=== PATIENT | female | born 1970 | race Caucasian/White ===

== ENCOUNTER 2022-11-09 17:21 | Emergency (ER) | payer OTHER, SELFPAY ==
[2022-11-09 17:30] VITALS: BP 135/75; PULSE 66; RESP 16; TEMP 36.8; O2SAT 96; BMI 32.5
--- NOTE | 2022-11-09 17:39 | ECG_ITS ---
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 Measurements Intervals [place] Rate: 68 P: 18 DE: 149 QRS: 98 QRSD: 101 T: 63 QT: 407 QTc: 433 Interpretive Statements SINUS RHYTHM BORDERLINE RIGHT AXIS DEVIATION [QRS AXIS > 90] INCOMPLETE RIGHT BUNDLE BRANCH BLOCK [90+ ms QRS DURATION, TERMINAL R IN V1/V2, 40+ ms S IN I/aVL/V4/V5/V6] MINIMAL ST DEPRESSION [0.025+ mV ST DEPRESSION] No previous ECG available for comparison Electronically Signed On 11-10-2022 23:24:04 SUPPORT ASSISTANT by Sandra Willard M.D. [id number]
[2022-11-09 20:34] VITALS: BP 126/74; PULSE 64; RESP 16; TEMP 36.7; O2SAT 94
--- NOTE | 2022-11-09 20:52 | USR_ITS ---
PROCEDURE INFORMATION: Exam: US Abdomen, Limited; Right Upper Quadrant Exam date and time: 11/09/2022 9:01 PM Age: 52 years old Clinical indication: Abdominal pain; Other: Ruq pain x 2 days TECHNIQUE: Imaging protocol: Real time ultrasound of the abdomen with image documentation. Limited exam focused on the right upper quadrant. COMPARISON: No relevant prior studies available. FINDINGS: Liver: Normal. No masses. Gallbladder: Normal. No gallstones. There is no gallbladder wall thickening. Biliary ducts: Normal. No stones. No dilation. Pancreas: Visualized pancreas is unremarkable. Right kidney: Normal. No mass. No hydronephrosis. US/US gall bladder [id number] IMPRESSION: No acute findings.
[2022-11-09 21:39] VITALS: BP 145/84; PULSE 67; RESP 16; TEMP 36.8; O2SAT 97
--- NOTE | 2022-11-09 21:46 | W.ED.ABDPA2 ---
HPI - Abdominal Pain General: Chief Complaint: Abdominal Pain Stated Complaint: abd pain/n/belching Time Seen by Provider: 11/09/22 21:39 History of Present Illness: Ms. Velasco is a 52-year-old lady with history of hypertension presenting to the emergency department for abdominal pain. She reports being at her baseline health and had subacute onset of pain in the right upper quadrant of her abdomen. She notes nausea but no vomiting. Denies changes in bowel habits or other signs of systemic illness. Overall course of symptoms has persisted. Intensity is moderate to severe. Denies similar frequent episodes in the past. Only abdominal surgery is . No other specific changes in health, exacerbating, or alleviating factors identified. Onset (ago): hour(s) Pain Consistency: constant Location: RLQ Severity: moderate Quality: aching and sharp Radiation: none Migration to: no migration Exacerbating factors: movement Relieving factors: nothing Associated Symptoms: Reports nausea; Denies coffee ground emesis, hematuria, hematemesis, melena and vomiting Review of Systems General: Reports: 10 or more systems reviewed and unremarkable except in HPI and below GI: Reports: nausea; Denies: vomiting, hematemesis, coffee ground emesis or melena : Denies: hematuria PFSH ED PFSH: Medical History Bilateral low back pain with bilateral sciatica Social History Smoking and tobacco status: never smoked Physical Exam Const: COMMON NORMALS: alert GENERAL APPEARANCE: cooperative and well developed HENMT: COMMON NORMALS: normocephalic and atraumatic HEAD & SCALP: normocephalic and atraumatic Eye: COMMON NORMALS: conjunctivae normal CONJUNCTIVA: Yes conjunctivae normal SCLERA: sclerae normal Neck/C-Spine: COMMON NORMALS: supple GENERAL: Yes trachea midline Resp: COMMON NORMALS: normal respiratory effort EFFORT & INSPECTION: Yes able to speak in complete sentences Cardio: COMMON NORMALS: regular rate and regular rhythm RATE: regular rate RHYTHM: regular rhythm GI: COMMON NORMALS: Soft to palpation PALPATION: Yes Soft to palpation, Yes Tenderness to palpation present (GI), No Guarding due to palpation present (GI) and No Rigid due to palpation Extremity: GENERAL: Yes normal exam except as noted and No edema Neuro: COMMON NORMALS: moves all extremities SENSORIUM/ORIENTATION: Yes alert and No Orientation impaired Psych: COMMON NORMALS: mental status grossly normal and Normal thought process present THOUGHT PROCESS: Normal thought process present Course Vital Signs: Vital signs: Vital Signs Temperature 98.3 F 11/09/22 21:39 Pulse Rate 80 11/10/22 00:17 Respiratory Rate 16 11/10/22 00:17 Blood Pressure 101/65 11/10/22 00:17 Pulse Oximetry 93 11/10/22 00:17 Oxygen Delivery Me thod 11/10/22 00:00 MDM - Abdominal Pain Medical Decision Making 52-year-old lady presenting with abdominal pain. Exam as above, abdominal tenderness in the right lower quadrant without evidence of acute surgical abdomen. Patient also notes indigestion feeling. EKG notable for sinus rhythm, borderline right axis deviation and incomplete right bundle branch block. No STEMI. Labs with no significant hematologic or metabolic abnormalities with exception of mildly elevated lipase. No UTI. Negative right upper quadrant ultrasound. CT abdomen pelvis with likely enteritis and hepatic steatosis. Patient treated with analgesia and antiemetic, also received GI cocktail. Most likely etiology of patient's symptoms is unspecified abdominal pain. The results of ED evaluation were discussed with the patient including prescriptions and/or symptomatic cares (if applicable) including appropriate and responsible use, followup plan, and return precautions. The patient verbalized understanding and felt safe for discharge. Medical Records I reviewed the patient's medical records. Lab Data I reviewed the patient's lab results. 11/09/22 21:56 11/09/22 21:56 Labs/Radiology: Radiology Impressions Gallbladder Ultrasound 11/09/22 20:52 IMPRESSION: No acute findings. Abdomen/Pelvis CT 11/09/22 22:15 IMPRESSION: 1. Prominent fluid in the small bowel without dilation may reflect an enteritis. 2. Emphysematous changes. 3. Hepatic steatosis. 4. Right hepatic lobe cyst. 5. Constipation. Laboratory Results WBC 7.3 10^3/uL (4.0-10.0) 11/09/22 21:56 RBC 5.07 10^6/uL (4.1-5.3) 11/09/22 21:56 Hgb 14.9 g/dL (11.5-15.3) 11/09/22 21:56 Hct 46.6 % (37.0-47.0) 11/09/22 21:56 MCV 91.9 fl (81-99) 11/09/22 21:56 MCH 29.4 pg (28.0-34.0) 11/09/22 21:56 MCHC 32.0 g/dL (30.0-36.0) 11/09/22 21:56 RDW 13.2 % (12.1-15.1) 11/09/22 21:56 Plt Count 227 10^3/cmm (130-400) 11/09/22 21:56 MPV 11.0 fL (7.4-10.4) H 11/09/22 21:56 Neut % (Auto) 56.0 % 11/09/22 21:56 Lymph % (Auto) 32.9 % 11/09/22 21:56 [place] % (Auto) 7.3 % 11/09/22 21:56 Eos % (Auto) 2.6 % 11/09/22 21:56 Baso % (Auto) 0.6 % 11/09/22 21:56 Neut # (Auto) 4.08 10^3/uL (1.8-7.7) 11/09/22 21:56 Lymph # (Auto) 2.4 10^3/uL (0.8-4.8) 11/09/22 21:56 [place] # (Auto) 0.5 10^3/uL (0.2-0.9) 11/09/22 21:56 Eos # (Auto) 0.2 10^3/uL (0.0-0.8) 11/09/22 21:56 Baso # (Auto) 0.0 10^3/uL (0.0-0.1) 11/09/22 21:56 Nucleated RBC % (auto) 0 % 11/09/22 21:56 Nucleated RBCs # 0.0 /100WBC 11/09/22 21:56 Sodium 138 mmol/L (136-145) 11/09/22 21:56 Potassium 4.1 mmol/L (3.5-5.1) 11/09/22 21:56 Chloride 98 mmol/L (98-107) 11/09/22 21:56 Carbon Dioxide 28 mmol/L (22-29) 11/09/22 21:56 Anion Gap 16.1 (5-19) 11/09/22 21:56 BUN 13 mg/dL (6-20) 11/09/22 21:56 Creatinine 0.9 mg/dL (0.5-0.9) 11/09/22 21:56 GFR Calculation 65.5 mL/min (90-130) L 11/09/22 21:56 Glucose 97 mg/dL (65-115) 11/09/22 21:56 Calculated Osmolality 286 mOsm/kg (285-295) 11/09/22 21:56 Calcium 9.9 mg/dL (8.5-10.5) 11/09/22 21:56 Total Bilirubin 0.4 mg/dL (0.15-1.2) 11/09/22 21:56 AST 19 U/L (0-32) 11/09/22 21:56 ALT 19 U/L (0-33) 11/09/22 21:56 Alkaline Phosphatase 77 U/L (35-105) 11/09/22 21:56 Total Protein 7.3 g/dL (6.6-8.7) 11/09/22 21:56 Albumin 4.6 g/dL (3.5-5.2) 11/09/22 21:56 Globulin 2.7 g/dL (1.3-4.6) 11/09/22 21:56 Lipase 195 U/L (13-60) H 11/09/22 21:56 Urine Color Yellow (Yellow) 11/09/22 22:04 Urine Appearance Clear (CLEAR) 11/09/22 22:04 Urine pH 5 (5-7) 11/09/22 22:04 Ur Specific [place] 1.020 (1.005-1.030) 11/09/22 22:04 Urine Protein Neg (Negative) 11/09/22 22:04 Urine Glucose (UA) Norm (Normal) 11/09/22 22:04 Urine Ketones Negative (Negative) 11/09/22 22:04 Urine Blood Neg (Negative) 11/09/22 22:04 Urine Nitrate Negative (Negative) 11/09/22 22:04 Urine Bilirubin Neg (Negative) 11/09/22 22:04 Urine Urobilinogen Norm mg/dL (Negative) 11/09/22 22:04 Ur Leukocyte Esterase 1+ (Negative) H 11/09/22 22:04 Urine RBC 5-10 /hpf (0-2) H 11/09/22 22:04 Urine WBC 0-4 /hpf (0-5) H 11/09/22 22:04 Ur Squamous Epith Cells 5-10 /hpf (0-5) H 11/09/22 22:04 Amorphous Sediment Not Reportable 11/09/22 22:04 Urine Bacteria 1+ /hpf (NONE) H 11/09/22 22:04 Discharge Plan Discharge Patient Disposition: Home Clinical Impression: Abdominal pain, Pancreatitis, Hepatic steatosis, Enteritis Condition: Stable Prescriptions: New ondansetron 4 mg tablet,disintegrating 4 mg PO Q8H PRN (Reason: nausea and vomiting) Qty: 15 0RF oxycodone 5 mg tablet 5 mg PO Q4H PRN (Reason: pain) Qty: 10 0RF No Action propranolol 80 mg capsule,extended release 24hr 80 mg PO DAILY propranolol 60 mg capsule,extended release 24 hr 60 mg PO DAILY Allergy Relief (cetirizine) 10 mg capsule 10 mg PO DAILY PRN sumatriptan succinate [Imitrex] 100 mg tablet 100 mg PO Q2H PRN Rx Instructions: do not exceed 2 doses per 24 hrs albuterol sulfate 90 mcg/actuation HFA aerosol inhaler 2 inh inhalation Q4H PRN (Reason: shortness of breath or wheezing) Qty: 6.7 0RF Discharge Orders: Discharge ED (Routine); Ordered 11/09/22 Ordered By: Trung Ayala Referrals: Mirna Pantoja MD [Primary Care Provider] - Discharge Diet: Advance as tolerated and Clear Liquid Discharge Activity: Increase activity as tolerated Patient Instructions: Pancreatitis (ED), Abdominal Pain (ED), Enteritis (ED), Opioid Safety Activity Restrictions/Additional Instructions: Thank you for visiting the emergency department. You were seen and divided for abdominal pain. The most likely cause of your symptoms is related to mild pancreatitis and enteritis. You also have hepatic steatosis as discussed. I do not believe that you require hospitalization at this time. I recommend clear liquid diet and advancing as tolerated starting with bland food. I will prescribe antinausea and pain medication. You may use [id number] medications such as acetaminophen and ibuprofen for pain however please do not exceed the daily recommended dosage as listed on the packaging and please keep in mind that many namebrand medications contain the same active ingredients. Please avoid these medications if previously instructed to do so by another physician due to other underlying medical condition. If taking ibuprofen or other NSAID please also take a proton pump inhibitor or H2 malik. Please follow-up with your primary care provider. Return to the emergency department for uncontrolled symptoms or anything else that you are concerned about and feel needs emergency department evaluation. 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
[2022-11-09] MEDS: lidocaine 2% viscous 15 ML, aluminum-mag hydrox-simethicon 30 ML, sucralfate oral liq 1 GM PO (21:48)
[2022-11-09 22:03] LABS: Basophils % 0.6 %; Eosinophils # 0.2 10^3/uL (0.0-0.8); Eosinophils % 2.6 %; Hematocrit 46.6 % (37.0-47.0); Hemoglobin 14.9 g/dL (11.5-15.3); Lymphocytes # 2.4 10^3/uL (0.8-4.8); Lymphocytes % 32.9 %; Mean Corpuscular Hemoglobin 29.4 pg (28.0-34.0); Mean Corpuscular Volume 91.9 fl (81-99); Monocytes # 0.5 10^3/uL (0.2-0.9); Monocytes % 7.3 %; Neutrophils # 4.08 10^3/uL (1.8-7.7); Nucleated Red Blood Cells % 0 %; Platelet Count 227 10^3/cmm (130-400); Red Blood Count 5.07 10^6/uL (4.1-5.3); Red Cell Distribution Width 13.2 % (12.1-15.1); White Blood Count 7.3 10^3/uL (4.0-10.0)
[2022-11-09] MEDS: morphine 4 mg/mL SDV 1 mL IVP (22:05)
[2022-11-09] MEDS: ondansetron 2 mg/ML SDV 2 mL 4 MG IVP (22:05)
--- NOTE | 2022-11-09 22:15 | CTR_ITS ---
PROCEDURE INFORMATION: Exam: CT Abdomen And Pelvis With Contrast Exam date and time: 11/09/2022 10:30 PM Age: 52 years old Clinical indication: Abdominal pain; Localized; Right upper quadrant (ruq); Prior surgery; Surgery type: Csection; Patient HX: Ruq pain with nausea. TECHNIQUE: Imaging protocol: Computed tomography of the abdomen and pelvis with contrast. Radiation optimization: All CT scans at this facility use at least one of these dose optimization techniques: automated exposure control; mA and/or kV adjustment per patient size (includes targeted exams where dose is matched to clinical indication); or iterative reconstruction. Contrast material: OMNI 350; Contrast volume: 100 ml; Contrast route: INTRAVENOUS (IV); REPORTING DATA: Count of CT and Cardiac NM exams in prior 12 months: This patient has received 0 known CTs and 0 known cardiac nuclear medicine studies in the 12 months prior to the current study. COMPARISON: US gall bladder [id number] 11/09/2022 9:01 PM RADIATION DOSE METRICS: Total DLP (mGy-cm): 861.53 FINDINGS: Lungs: Emphysematous changes. Liver: Hepatic steatosis. Right hepatic lobe cyst. Gallbladder and bile ducts: Normal. No calcified stones. No ductal dilation. Pancreas: Normal. No ductal dilation. Spleen: Normal. No splenomegaly. Adrenal glands: Normal. No mass. Kidneys and ureters: Normal. No hydronephrosis. Stomach and bowel: Prominent fluid in the small bowel without dilation may reflect an enteritis. Constipation. Appendix: No evidence of appendicitis. Intraperitoneal space: Unremarkable. No free air. No significant fluid collection. Vasculature: Unremarkable. No abdominal aortic aneurysm. Lymph nodes: Unremarkable. No enlarged lymph nodes. Urinary bladder: Unremarkable as visualized. Reproductive: Unremarkable as visualized. Bones/joints: Unremarkable. No acute fracture. Soft tissues: Unremarkable. CT/CT abdomen pelvis w con* [id number] IMPRESSION: 1. Prominent fluid in the small bowel without dilation may reflect an enteritis. 2. Emphysematous changes. 3. Hepatic steatosis. 4. Right hepatic lobe cyst. 5. Constipation.
[2022-11-09 22:21] LABS: Alanine Aminotransferase 19 U/L (0-33); Albumin Level 4.6 g/dL (3.5-5.2); Alkaline Phosphatase 77 U/L (35-105); Anion Gap 16.1 (5-19); Aspartate Amino Transferase 19 U/L (0-32); Blood Urea Nitrogen 13 mg/dL (6-20); Calcium 9.9 mg/dL (8.5-10.5); Carbon Dioxide 28 mmol/L (22-29); Chloride 98 mmol/L (98-107); Globulin 2.7 g/dL (1.3-4.6); Glomerular Filtration Rate 65.5 mL/min (90-130); Glucose 97 mg/dL (65-115); Lipase 195 U/L (13-60); Osmolality Calculated 286 mOsm/kg (285-295); Potassium 4.1 mmol/L (3.5-5.1); Sodium 138 mmol/L (136-145); Total Bilirubin 0.4 mg/dL (0.15-1.2); Total Protein 7.3 g/dL (6.6-8.7)
[2022-11-09] MEDS: iohexol 350 mg/mL 500 mL Btl (per mL) IV (22:37)
[2022-11-09 22:54] VITALS: BP 133/90; O2SAT 94
[2022-11-09 23:22] LABS: Add Urine Microscopic? YES; Bilirubin Urine Neg (Negative); Blood Urine Neg (Negative); Glucose Urine UA Norm (Normal); Ketones Urine Negative (Negative); Leukocyte Esterase Urine 1+ (Negative); Nitrate Urine Negative (Negative); Protein Urine Neg (Negative); Urine Appearance Clear (CLEAR); Urine Color Yellow (Yellow); Urobilinogen Urine Norm (Negative); pH Urine 5 (5-7)
[2022-11-09 23:25] LABS: Bacteria Urine 1+ /hpf; WBC Urine 0-4 /hpf (0-5)
[2022-11-10] VITALS: BP 101/65; PULSE 80; RESP 16; O2SAT 93
--- NOTE | 2022-11-10 00:14 | PC.NURSE ---
Received patient report from DAYO Rowland.
[2022-11-10 00:17] VITALS: BP 101/65; PULSE 80; RESP 16; O2SAT 93
[2022-11-10] MEDS: ondansetron 2 mg/ML SDV 2 mL 4 MG IVP (00:28)
== END 2022-11-10 00:22 | disposition home or self-care (01) ==
PROVIDERS: Emergency Medicine; Emergency Provider Emergency Medicine; PCP Family Medicine
DX: K85.90 Acute pancreatitis without necrosis or infection, unspecified (principal); K76.0 Fatty (change of) liver, not elsewhere classified; K52.9 Noninfective gastroenteritis and colitis, unspecified; K59.00 Constipation, unspecified
CPT/HCPCS: 74177; 76705; 80053; 81001; 83690; 85025; 93005; 96374; 96375; 96376; 99285; J2270; J2405; Q9967

== ENCOUNTER → 2023-04-20 12:57 | Outpatient (BNVA) | payer OTHER, SELFPAY | PROVIDERS: PCP Family Medicine; Visit Provider Nurse Practitioner Family | DX: R05.9 Cough, unspecified (principal) | CPT/HCPCS: 87426 ==

== ENCOUNTER → 2025-03-18 18:23 | Outpatient (BNVA) | payer OTHER, SELFPAY | PROVIDERS: PCP Family Medicine; Visit Provider Nurse Practitioner | DX: R39.9 Unspecified symptoms and signs involving the genitourinary system (principal) | CPT/HCPCS: 81000; 87086 ==

== ENCOUNTER → 2025-03-25 17:15 | Outpatient (BNVA) | payer OTHER, SELFPAY | PROVIDERS: PCP Family Medicine | DX: R30.0 Dysuria (principal); N39.0 Urinary tract infection, site not specified | CPT/HCPCS: 81000; 87086 ==

== ENCOUNTER → 2025-08-18 15:50 | Outpatient (BNVA) | payer OTHER, SELFPAY | PROVIDERS: PCP Family Medicine; Visit Provider Obstetrics & Gynecology | DX: R39.89 Other symptoms and signs involving the genitourinary system (principal) | CPT/HCPCS: 81000; 87086 ==

== ENCOUNTER → 2025-08-25 13:42 | Outpatient (BNVA) | payer OTHER, SELFPAY | PROVIDERS: PCP Family Medicine; Visit Provider Obstetrics & Gynecology | DX: N83.291 Other ovarian cyst, right side (principal) | CPT/HCPCS: 76830; 87624 ==